=== PATIENT | female | born 1985 | race Caucasian/White ===

== ENCOUNTER 2021-03-18 10:48 | Outpatient (NON) | payer BC, SELFPAY ==
[2021-03-18 11:46] LABS: Collection Time Urine 24 HOURS
[2021-03-18 12:00] LABS: Estimated Glomerular Filt Rate > 60
[2021-03-18 12:38] LABS: Total Volume 24 Hour Urine 1850 ml
[2021-03-18 13:05] LABS: Total Volume 24 Hour Urine 1850 ml
[2021-03-18 13:07] LABS: Creatinine Urine 101.4 mg/dL; Patient Weight 315 Lbs; Total Protein Urine 24 Hr 277 mg/24hr (28-141); Total Protein Urine Random 15 mg/dL
[2021-03-18 13:08] LABS: Creatinine 24 Hour Urine 1.9 gm/24 (0.8-1.8); Creatinine Urine 103.2 mg/dL
[2021-03-18 13:40] LABS: Creatinine Clearance Urine 180.5 ml/min (75-125); Serum Creat 0.5
[2021-05-24 11:16] VITALS: BP 134/70; PULSE 93
[2021-05-24 11:31] VITALS: BP 121/59; PULSE 92
[2021-05-24 11:46] VITALS: BP 125/70; PULSE 92
== END 2021-03-18 10:49 | disposition home or self-care (01) ==
LOC: ANHLAB 10:55
PROVIDERS: PCP Obstetrics & Gynecology Gynecology; Visit Provider Obstetrics & Gynecology
DX: O13.9 Gestational [pregnancy-induced] hypertension without significant proteinuria, unspecified trimester (principal)
CPT/HCPCS: 36415; 81050; 82565; 82570; 82575; 84156

== ENCOUNTER 2021-05-25 12:38 | Observation (INO) | payer OTHER, SELFPAY ==
[2021-05-25] VITALS (50 sets, daily range): BP systolic 107–143; BP diastolic 44–69; PULSE 72–95; TEMP 36.8; O2SAT 97–100; BMI 48.6
--- NOTE | ~2021-05-25 | US_ITS ---
US OB BPP wo non-stress DATE: 05/25/2021 16:14 INDICATION: Nonreactive nonstress test TECHNIQUE: Real-time imaging and Doppler analysis COMPARISON: May 24, 2021 obstetrical ultrasound with biophysical profile FINDINGS: Live jha intrauterine gestation, fetus in vertex presentation, longitudinal lie with heart rate of 151 bpm. Anterior placenta. Subjectively normal amount of adnexal fluid. BIOPHYSICAL PROFILE reported by bicycle repair technician: breathin out of 2 movement: 2 out of 2 tone: 2 out of 2 Amniotic fluid pocket: 2 out of 2 Total score: 8 out of 8 IMPRESSION: Normal biophysical profile score of 8 out of 8 Reviewed, dictated and finalized at Location A. Reviewed, dictated and finalized at location A. ICE PLANNER
--- NOTE | 2021-05-25 13:30 | OBADM ---
This patient, Carola Samuels, admitted to the OB room Labor/Delivery/Recovery 119 for observation for decreased movement and back pain. Patient/family oriented to hospital policies and general routines including ID bracelet, bed and alarms, visiting hours, pain management, procedures, bathroom and other care routines, personal items, smoking policy, room service/diet, and visiting hours. Patient/Family are encouraged to report perceived risks to care and to ask questions if they do not understand what they are told or what they should do.
[2021-05-25 14:47] LABS: Basophils Absolute Auto 0.1 K/mm3 (0.0-0.1); Basophils Percent Auto 0.4 % (0.2-1.2); Eosinophils Absolute Auto 0.1 K/mm3 (0-0.3); Eosinophils Percent Auto 0.4 % (0-4.4); Hematocrit 32.5 % (37.0-47.0); Hemoglobin 10.7 g/dL (12.0-15.0); Immature Granulocyte Absolute 0.22 K/mm3 (0.00-0.031); Immature Granulocyte Percent A 1.5 % (0-0.5); Lymphocytes Absolute Auto 2.23 K/mm3 (0.9-3.2); Lymphocytes Percent Auto 15.7 % (18.3-44.2); Mean Corpuscular HGB Conc 32.9 g/dl (32-36); Mean Corpuscular Hemoglobin 31.4 pg (26-34); Mean Corpuscular Volume 95.3 fl (80-100); Mean Platelet Volume 9.6 fl (7.4-10.4); Monocytes Absolute Auto 1.2 K/mm3 (0.1-0.6); Monocytes Percent Auto 8.2 % (2.6-8.5); Neutrophils Absolute Auto 10.5 K/mm3 (1.3-6.7); Neutrophils Percent Auto 73.8 % (45.5-73.1); Platelet Count Result 341 k/mm3 (150-375); Red Blood Count 3.41 M/mm3 (4.2-5.4); Red Cell Distribution Width 14.4 % (11.5-14.5); White Blood Count 14.2 K/mm3 (4.5-10.0)
[2021-05-25 14:51] LABS: Add Urine Microscopic? NO; Appearance Urine Clear (Clear); Bilirubin Urine Negative (Negative); Blood Urine Negative (Negative); Color Urine Yellow (Yellow); Glucose Urine UA Negative (Negative); Ketones Urine Negative (Negative); Leukocyte Esterase Ur Negative LEU/UL (Negative); Nitrate Urine Negative (Negative); Protein Urine Negative (Negative); Specific Grav Ur 1.011 (1.001-1.035); Urobilinogen Urine Negative mg/dL (<2.0)
[2021-05-25 14:55] LABS: Creatinine Urine 91.1 mg/dL; Total Protein Urine Random 8 mg/dL; Ur Ttl Prot Creatinine Ratio 0.09 mg/mg (0-0.20)
[2021-05-25 15:01] LABS: Alanine Aminotransferase 16 U/L (4-35); Albumin Level 3.5 g/dL (3.5-5.1); Alkaline Phosphatase 123 U/L (38-126); Anion Gap 4 mmol/L (8-16); Aspartate Amino Transferase 32 U/L (14-36); Bilirubin,Total 0.4 mg/dL (0.2-1.3); Blood Urea Nitrogen 4 mg/dL (7-17); Calcium 8.6 mg/dL (8.4-10.2); Carbon Dioxide 18 mmol/L (22-30); Chloride 110 mmol/L (98-107); Estimated Glomerular Filt Rate > 60; Glucose 70 mg/dL (65-110); Potassium 4.2 mmol/L (3.4-5.0); Sodium 132 mmol/L (137-145); Uric Acid 4.5 mg/dL (2.5-7.5)
--- NOTE | 2021-06-19 11:51 | PM.OBTRLD ---
OB - Triage/Final Diagnosis Visit Information Comments/Additional reasons for admission: I have assessed the risk for this patient, Carola Samuels, and determined that she would benefit from observation care. Evaluation Laboratory results: Laboratory Tests 05/25/21 05/25/21 05/25/21 14:22 14:22 14:22 WBC 14.2 H RBC 3.41 L Hgb 10.7 L Hct 32.5 L MCV 95.3 MCH 31.4 MCHC 32.9 RDW 14.4 Plt Count 341 MPV 9.6 Immature Gran % (Auto) 1.5 H Neut % (Auto) 73.8 H Lymph % (Auto) 15.7 L [place] % (Auto) 8.2 Eos % (Auto) 0.4 Baso % (Auto) 0.4 Lymph # (Auto) 2.23 [place] # (Auto) 1.2 H Eos # (Auto) 0.1 Baso # (Auto) 0.1 Abs Immat Gran (auto) 0.22 H Absolute Neuts (auto) 10.5 H Absolute Nucleated RBC 0.0 Nucleated RBC % 0.0 Sodium 132 L Potassium 4.2 Chloride 110 H Carbon Dioxide 18 L Anion Gap 4 L BUN 4 L Creatinine 0.40 L Estim Creat Clear Calc Not Reportable Estimated GFR > 60 Glucose 70 Uric Acid 4.5 Calcium 8.6 Total Bilirubin 0.4 AST 32 ALT 16 Alkaline Phosphatase 123 Total Protein 7.0 Albumin 3.5 Urine Color Urine Appearance Urine pH Ur Specific [place] Urine Protein Urine Glucose (UA) Urine Ketones Ur Blood (Man) Urine Nitrate Urine Bilirubin Urine Urobilinogen Leukocyte Esterase Rfl U Random Total Protein 8 Urine Creatinine 91.1 Protein/Creat Ratio 2 0.09 05/25/21 14:22 WBC RBC Hgb Hct MCV MCH MCHC RDW Plt Count MPV Immature Gran % (Auto) Neut % (Auto) Lymph % (Auto) [place] % (Auto) Eos % (Auto) Baso % (Auto) Lymph # (Auto) [place] # (Auto) Eos # (Auto) Baso # (Auto) Abs Immat Gran (auto) Absolute Neuts (auto) Absolute Nucleated RBC Nucleated RBC % Sodium Potassium Chloride Carbon Dioxide Anion Gap BUN Creatinine Estim Creat Clear Calc Estimated GFR Glucose Uric Acid Calcium Total Bilirubin AST ALT Alkaline Phosphatase Total Protein Albumin Urine Color Yellow Urine Appearance Clear Urine pH 7.0 Ur Specific [place] 1.011 Urine Protein Negative Urine Glucose (UA) Negative Urine Ketones Negative Ur Blood (Man) Negative Urine Nitrate Negative Urine Bilirubin Negative Urine Urobilinogen Negative Leukocyte Esterase Rfl Negative U Random Total Protein Urine Creatinine Protein/Creat Ratio 2 Final Diagnosis (1) Chronic hypertension affecting : Code(s): O10.919 - Unspecified pre-existing hypertension complicating , unspecified trimester Status: Acute
== END 2021-05-25 18:01 | disposition home or self-care (01) ==
LOC: ANHLDR 13:50 → ANHOBOP 15:55 → ANHLDR 15:56
PROVIDERS: Admitting Provider Obstetrics & Gynecology; Visit Provider Obstetrics & Gynecology
DX: O10.913 Unspecified pre-existing hypertension complicating pregnancy, third trimester (principal); Z3A.33 33 weeks gestation of pregnancy
CPT/HCPCS: 36415; 76819; 80053; 81003; 82570; 84156; 84550; 85025; G0378; G0379

== ENCOUNTER 2021-06-09 13:07 | Observation (INO) | payer OTHER, SELFPAY ==
[2021-06-09 13:42] VITALS: BP 149/81; PULSE 101
[2021-06-09 14:01] VITALS: BP 134/84; PULSE 87
--- NOTE | 2021-07-03 08:46 | PM.OBTRLD ---
OB - Triage/Final Diagnosis Visit Information Comments/Additional reasons for admission: I have assessed the risk for this patient, Carola Samuels, and determined that she would benefit from observation care. Final Diagnosis (1) Dizzy: Code(s): R42 - Dizziness and giddiness Status: Acute
== END 2021-06-09 14:18 | disposition home or self-care (01) ==
PROVIDERS: Admitting Provider Obstetrics & Gynecology; Visit Provider Obstetrics & Gynecology
DX: O26.893 Other specified pregnancy related conditions, third trimester (principal); R42 Dizziness and giddiness; Z3A.35 35 weeks gestation of pregnancy
CPT/HCPCS: G0378; G0379

== ENCOUNTER 2021-06-14 13:23 | Outpatient (RCR) | payer OTHER, SELFPAY ==
[2021-05-16 12:41] VITALS: BP 125/55; PULSE 92
[2021-05-24 12:40] VITALS: BP 125/70; PULSE 95
[2021-05-31 14:05] VITALS: BP 109/52; PULSE 100
[2021-06-07 10:38] VITALS: BP 126/56; PULSE 104
--- NOTE | ~2021-06-14 | US_ITS ---
EXAMINATION: US OB BPP wo non-stress DATE: 05/16/2021 12:37 INDICATION: Nonreactive nonstress test during third trimester TECHNIQUE: Real-time pelvic ultrasound was performed. The interpreting radiologist was not present fo r the study. COMPARISON: None. FINDINGS: There is a single living fetus in vertex presentation. The placenta is anterior. heart rate is 138 beats per minute (bpm). Biophysical profile performed by the technologist: breathing (30 sec sustained breathing in 30 minutes): 2 out of 2 movement (3 gross body movements in 30 minutes): 2 out of 2 tone (one episode of qhqbvcv-yyswffitu-kzkkiwa limb movement): 2 out of 2 Amniotic fluid pocket (2 cm): 2 out of 2 Total score: 8 out of 8 IMPRESSION: 1. Single living fetus in vertex presentation with heart rate of 138 bpm. 2. Biophysical profile 8 out of 8. Reviewed, dictated and finalized at location A. TAL PHOTO PRINTER
--- NOTE | ~2021-06-14 | US_ITS ---
US OB BPP wo non-stress DATE: 05/24/2021 12:29 INDICATION: Nonreactive nonstress test TECHNIQUE: Real-time imaging and Doppler analysis COMPARISON: None FINDINGS: Live jha intrauterine gestation, fetus in vertex presentation, longitudinal lie with heart rate of 135 bpm. Anterior placenta. No evidence of placenta previa. Subjectively normal amount of adnexal fluid with a pocket measuring up to 6.5 cm depth. BIOPHYSICAL PROFILE reported by desktop support technician: breathin out of 2 movement: 2 out of 2 tone: 2 out of 2 Amniotic fluid pocket: 2 out of 2 Total score: 8 out of 8 IMPRESSION: Normal biophysical profile score of 8 out of 8 Reviewed, dictated and finalized at Location A. Reviewed, dictated and finalized at location A. ROL VALVE MECHANIC
--- NOTE | ~2021-06-14 | US_ITS ---
EXAMINATION: US OB BPP wo non-stress DATE: 05/31/2021 14:07 INDICATION: Nonreactive nonstress test, third trimester TECHNIQUE: Real-time pelvic ultrasound was performed. The interpreting radiologist was not present fo r the study. COMPARISON: 05/25/2021 FINDINGS: There is a single living fetus in transverse lie. The placenta is anterior. heart rate is 157 b eats per minute (bpm). Biophysical profile performed by the technologist: breathing (30 sec sustained breathing in 30 minutes): 2 out of 2 movement (3 gross body movements in 30 minutes): 2 out of 2 tone (one episode of csqeexv-xyegrickm-hcccqvy limb movement): 2 out of 2 Amniotic fluid pocket (2 cm): 2 out of 2 Total score: 8 out of 8 IMPRESSION: 1. Single living fetus in transverse lie. 2. Biophysical profile 8 out of 8. Reviewed, dictated and finalized at location A. E BANDER
--- NOTE | ~2021-06-14 | US_ITS ---
EXAMINATION: US OB BPP wo non-stress DATE: 06/07/2021 10:33 DRY WALL INSTALLATIONS MECHANIC INDICATION: Chronic hypertension TECHNIQUE: Real-time transabdominal obstetric ultrasound. FINDINGS: 05/31/2021 There is a single living fetus in transverse presentation. The placenta is anterior without placenta previa. cardiac activity and movement is noted with a heart rate of 142 beats per minute. Biophysical profile: breathin of 2 movement: 2 of 2 tone: 2 of 2 Amniotic flud pocket: 2 of 2 Total score: 8 of 8 IMPRESSION: 1. Single living intrauterine in transverse presentation. 2: Total biophysical profile score of 8/8. Reviewed, dictated and finalized at location B. WALL INSTALLATIONS MECHANIC
--- NOTE | ~2021-06-14 | US_ITS ---
US OB BPP wo non-stress DATE: 06/14/2021 14:56 INDICATION: Hypertension TECHNIQUE: Real-time imaging and Doppler analysis COMPARISON: June 07, 2021 obstetrical ultrasound with biophysical profile FINDINGS: Live jha intrauterine gestation, fetus in longitudinal lie, vertex presentation with heart rate of 142 bpm. Anterior placenta. Subjectively normal amount of amniotic fluid. BIOPHYSICAL PROFILE reported by downstream biomanufacturing technician: breathin out of 2 movement: 2 out of 2 tone: 2 out of 2 Amniotic fluid pocket: 2 out of 2 Total score: 8 out of 8 IMPRESSION: Normal biophysical profile score of 8 out of 8 Reviewed, dictated and finalized at Location A. Reviewed, dictated and finalized at location A. OLOGY TECHNICIAN
[2021-06-14 14:37] LABS: Basophils Percent Auto 0.3 % (0.2-1.2); Eosinophils Absolute Auto 0.1 K/mm3 (0-0.3); Eosinophils Percent Auto 0.4 % (0-4.4); Hematocrit 31.8 % (37.0-47.0); Hemoglobin 10.3 g/dL (12.0-15.0); Immature Granulocyte Absolute 0.16 K/mm3 (0.00-0.031); Immature Granulocyte Percent A 1.2 % (0-0.5); Lymphocytes Absolute Auto 2.05 K/mm3 (0.9-3.2); Lymphocytes Percent Auto 15.2 % (18.3-44.2); Mean Corpuscular HGB Conc 32.4 g/dl (32-36); Mean Corpuscular Hemoglobin 31.3 pg (26-34); Mean Corpuscular Volume 96.7 fl (80-100); Mean Platelet Volume 9.5 fl (7.4-10.4); Monocytes Absolute Auto 1.1 K/mm3 (0.1-0.6); Monocytes Percent Auto 8.3 % (2.6-8.5); Neutrophils Absolute Auto 10.1 K/mm3 (1.3-6.7); Neutrophils Percent Auto 74.6 % (45.5-73.1); Platelet Count Result 314 k/mm3 (150-375); Red Blood Count 3.29 M/mm3 (4.2-5.4); Red Cell Distribution Width 14.7 % (11.5-14.5); White Blood Count 13.5 K/mm3 (4.5-10.0)
[2021-06-14 14:54] LABS: Alanine Aminotransferase 14 U/L (4-35); Albumin Level 3.2 g/dL (3.5-5.1); Alkaline Phosphatase 133 U/L (38-126); Anion Gap 8 mmol/L (8-16); Aspartate Amino Transferase 26 U/L (14-36); Bilirubin,Total < 0.1 mg/dL (0.2-1.3); Blood Urea Nitrogen 7 mg/dL (7-17); Calcium 8.5 mg/dL (8.4-10.2); Carbon Dioxide 18 mmol/L (22-30); Chloride 110 mmol/L (98-107); Estimated Glomerular Filt Rate > 60; Glucose 94 mg/dL (65-110); Sodium 136 mmol/L (137-145); Uric Acid 4.9 mg/dL (2.5-7.5)
[2021-06-14 15:05] VITALS: BP 136/71; PULSE 84
== END 2021-06-27 10:47 | disposition home or self-care (01) ==
LOC: ANHOBOP 13:23
PROVIDERS: Visit Provider Obstetrics & Gynecology
DX: O26.893 Other specified pregnancy related conditions, third trimester (principal); R03.0 Elevated blood-pressure reading, without diagnosis of hypertension; O99.213 Obesity complicating pregnancy, third trimester; Z3A.32 32 weeks gestation of pregnancy; Z3A.33 33 weeks gestation of pregnancy; O16.3 Unspecified maternal hypertension, third trimester; O36.8130 Decreased fetal movements, third trimester, not applicable or unspecified; Z3A.34 34 weeks gestation of pregnancy; Z3A.35 35 weeks gestation of pregnancy; Z3A.36 36 weeks gestation of pregnancy
CPT/HCPCS: 36415; 59025; 76819; 80053; 84550; 85025; J2405

== ENCOUNTER 2021-06-19 17:08 | Inpatient (IN) | payer OTHER, SELFPAY ==
[2021-06-19] VITALS (11 sets, daily range): BP systolic 87–165; BP diastolic 44–103; PULSE 75–97; BMI 53.6
[2021-06-19 17:53] LABS: Basophils Absolute Auto 0.1 K/mm3 (0.0-0.1); Basophils Percent Auto 0.4 % (0.2-1.2); Eosinophils Absolute Auto 0.1 K/mm3 (0-0.3); Eosinophils Percent Auto 0.4 % (0-4.4); Hematocrit 32.2 % (37.0-47.0); Hemoglobin 10.8 g/dL (12.0-15.0); Immature Granulocyte Absolute 0.21 K/mm3 (0.00-0.031); Immature Granulocyte Percent A 1.5 % (0-0.5); Lymphocytes Absolute Auto 2.32 K/mm3 (0.9-3.2); Mean Corpuscular HGB Conc 33.5 g/dl (32-36); Mean Corpuscular Hemoglobin 31.5 pg (26-34); Mean Corpuscular Volume 93.9 fl (80-100); Mean Platelet Volume 9.4 fl (7.4-10.4); Monocytes Absolute Auto 1.3 K/mm3 (0.1-0.6); Monocytes Percent Auto 9.5 % (2.6-8.5); Neutrophils Absolute Auto 9.7 K/mm3 (1.3-6.7); Neutrophils Percent Auto 71.2 % (45.5-73.1); Platelet Count Result 348 k/mm3 (150-375); Red Blood Count 3.43 M/mm3 (4.2-5.4); Red Cell Distribution Width 14.6 % (11.5-14.5); White Blood Count 13.6 K/mm3 (4.5-10.0)
[2021-06-19] MEDS: DINOPROSTONE 10 MG VAG INSERT VAGINAL (18:02)
[2021-06-19 18:04] LABS: Alanine Aminotransferase 16 U/L (4-35); Albumin Level 3.3 g/dL (3.5-5.1); Alkaline Phosphatase 152 U/L (38-126); Anion Gap 5 mmol/L (8-16); Aspartate Amino Transferase 28 U/L (14-36); Bilirubin,Total 0.2 mg/dL (0.2-1.3); Blood Urea Nitrogen 7 mg/dL (7-17); Calcium 8.8 mg/dL (8.4-10.2); Carbon Dioxide 20 mmol/L (22-30); Chloride 108 mmol/L (98-107); Estimated Glomerular Filt Rate > 60; Glucose 82 mg/dL (65-110); Potassium 3.9 mmol/L (3.4-5.0); Sodium 133 mmol/L (137-145); Uric Acid 5.4 mg/dL (2.5-7.5)
--- NOTE | 2021-06-19 19:03 | WPDANESEPP ---
Anes - Eval Pre Procedure Procedure: Labor epidural Date/Time: 06/19/21 19:03 Surgeon: Tucker Preop Diagnosis: Abd pain with contractions Pre Op Diagnosis: Induction of Labor Patient Data Age: 35 Gender: F Height: Weight: Last Vital Signs Pulse 76 06/19/21 19:01 BP 87/59 L 06/19/21 19:01 Allergies Allergy/AdvReac Type Severity Reaction Status Date / Time No Known Allergies Allergy Verified 06/19/21 18:48 Home Medications Medication Instructions Recorded Confirmed Type fluoxetine 20 mg PO DAILY 05/25/21 06/19/21 History labetalol 300 mg PO BID 05/25/21 06/19/21 History metformin 500 mg PO BID 05/25/21 06/19/21 History nifedipine 30 mg PO DAILY 05/25/21 06/19/21 History PNV cmb#95-ferrous fumarate-FA 1 tablet PO DAILY 05/31/21 06/19/21 History [] cgmwzkghdx-xynaurempxspj-gmid 1 - 2 cap PO Q6H PRN #30 cap 06/14/21 06/19/21 Rx [Fioricet] Laboratory Tests 06/19/21 06/19/21 06/19/21 17:46 17:46 17:46 WBC 13.6 K/mm3 H K/mm3 (4.5-10.0) RBC 3.43 M/mm3 L M/mm3 (4.2-5.4) Hgb 10.8 g/dL L g/dL (12.0-15.0) Hct 32.2 % L % (37.0-47.0) MCV 93.9 fl fl (80-100) MCH 31.5 pg pg (26-34) MCHC 33.5 g/dl g/dl (32-36) RDW 14.6 % H % (11.5-14.5) Plt Count 348 k/mm3 k/mm3 (150-375) MPV 9.4 fl fl (7.4-10.4) Immature Gran % (Auto) 1.5 % H % (0-0.5) Neut % (Auto) 71.2 % % (45.5-73.1) Lymph % (Auto) 17.0 % L % (18.3-44.2) [place] % (Auto) 9.5 % H % (2.6-8.5) Eos % (Auto) 0.4 % % (0-4.4) Baso % (Auto) 0.4 % % (0.2-1.2) Lymph # (Auto) 2.32 K/mm3 K/mm3 (0.9-3.2) [place] # (Auto) 1.3 K/mm3 H K/mm3 (0.1-0.6) Eos # (Auto) 0.1 K/mm3 K/mm3 (0-0.3) Baso # (Auto) 0.1 K/mm3 K/mm3 (0.0-0.1) Abs Immat Gran (auto) 0.21 K/mm3 H K/mm3 (0.00-0.031) Absolute Neuts (auto) 9.7 K/mm3 H K/mm3 (1.3-6.7) Absolute Nucleated RBC 0.0 K/mm3 K/mm3 (0.0-0.012) Nucleated RBC % 0.0 % % (0.0-0.2) Sodium 133 mmol/L L mmol/L (137-145) Potassium 3.9 mmol/L mmol/L (3.4-5.0) Chloride 108 mmol/L H mmol/L (98-107) Carbon Dioxide 20 mmol/L L mmol/L (22-30) Anion Gap 5 mmol/L L mmol/L (8-16) BUN 7 mg/dL mg/dL (7-17) Creatinine 0.50 mg/dL L mg/dL (0.7-1.0) Estim Creat Clear Calc Not Reportable Estimated GFR > 60 (59 - ) Glucose 82 mg/dL mg/dL (65-110) Uric Acid 5.4 mg/dL mg/dL (2.5-7.5) Calcium 8.8 mg/dL mg/dL (8.4-10.2) Total Bilirubin 0.2 mg/dL mg/dL (0.2-1.3) AST 28 U/L U/L (14-36) ALT 16 U/L U/L (4-35) Alkaline Phosphatase 152 U/L H U/L (38-126) Total Protein 6.0 g/dL L g/dL (6.3-8.2) Albumin 3.3 g/dL L g/dL (3.5-5.1) RPR Pending Patient hx anesthesia problems: none Family hx anesthesia problems: none Results Review: All pre-operative results and documents have been reviewed as part of the pre-operative evaluation. [facility] [place] Past Medical History Medical History Anxiety Gestational HTN Migraines Morbid obesity PCOS (polycystic ovarian syndrome) and not yet delivered Family History Family History Grandparent Heart disease Cerebrovascular accident Mother Hypertension Father Hypertension Sibling Sudden syndrome (SIDS) Sibling Overdose Grandparent Colon cancer Grandparent Malignant brain tumor Social History Social History Substance use: never Spiritual care concerns: No Exam Day of Procedure 06/19/21 19:03 Patient weight: super
[2021-06-20] VITALS (211 sets, daily range): BP systolic 98–167; BP diastolic 38–114; PULSE 60–138; TEMP 36.7–37; O2SAT 92–100
[2021-06-20] MEDS: OXYTOCIN 30 UNITS/NS 500 ML 30 UNITS/500 ML BAG 6 UNITS IV CONT (06:50)
[2021-06-20] MEDS: LACTATED RINGERS 1,000 ML 125 ML IV CONT ×2 (06:50→21:01)
[2021-06-20] MEDS: LABETALOL HCL 100 MG TABLET 300 MG PO ×2 (07:45→21:00)
--- NOTE | 2021-06-20 08:45 | PM.IMHP ---
H&P: HPI History of Present Illness Date/Time: 06/20/21 0845 35 y/o at 37 2/7 weeks gestation with chronic HTN, worsening bp control. She takes labetalol 300 mb po bid and Procardia XL 30 mg daily. She has had an increase in headaches recently. She takes metformin for PCOS, but had negative testing for gestational diabetes. GBS neg. She is here for induction of labor. Cervidil was placed overnight last night, has been withdrawn. Chief Complaint: High blood pressure Review of Systems Review of Systems: All systems reviewed & are unremarkable except as noted in HPI and below PMFSH Past Medical History Medical History Anxiety Gestational HTN Migraines Morbid obesity PCOS (polycystic ovarian syndrome) and not yet delivered Family History Family History Grandparent Heart disease Cerebrovascular accident Mother Hypertension Father Hypertension Sibling Sudden infant syndrome (SIDS) Sibling Overdose Grandparent Colon cancer Grandparent Malignant brain tumor Social History Social History Substance use: never Spiritual care concerns: No Meds Home Medications and Allergies Home Medications Medication Instructions Recorded Confirmed Type fluoxetine 20 mg PO DAILY 05/25/21 06/19/21 History labetalol 300 mg PO BID 05/25/21 06/19/21 History metformin 500 mg PO BID 05/25/21 06/19/21 History nifedipine 30 mg PO DAILY 05/25/21 06/19/21 History PNV cmb#95-ferrous fumarate-FA 1 tablet PO DAILY 05/31/21 06/19/21 History [] ddqqfadtui-lrgbziyzkmyik-zsnw 1 - 2 cap PO Q6H PRN #30 cap 06/14/21 06/19/21 Rx [Fioricet] Allergies Allergy/AdvReac Type Severity Reaction Status Date / Time No Known Allergies Allergy Verified 06/19/21 18:48 Vital Signs Vital Signs - 24 hr 06/19/21 23:52 06/20/21 03:59 06/20/21 06:51 Temperature 37.0 C Pulse Rate 83 79 103 H Blood Pressure 126/53 L 124/44 L 149/71 H Pulse Oximetry 06/20/21 07:01 06/20/21 07:16 06/20/21 07:30 Temperature 37.0 C Pulse Rate 103 H 100 Blood Pressure 145/74 H 121/54 L Pulse Oximetry 06/20/21 07:31 06/20/21 07:45 06/20/21 08:01 Temperature Pulse Rate 103 H 70 94 Blood Pressure 134/114 H 118/53 L Pulse Oximetry 06/20/21 08:16 06/20/21 08:46 06/20/21 09:16 Temperature Pulse Rate 85 82 81 Blood Pressure 123/46 L 118/58 L 164/83 H Pulse Oximetry 06/20/21 09:30 06/20/21 09:31 06/20/21 09:46 Temperature 37.0 C Pulse Rate 78 77 Blood Pressure 159/83 H 132/57 L Pulse Oximetry 06/20/21 10:01 06/20/21 10:16 06/20/21 10:46 Temperature Pulse Rate 74 86 85 Blood Pressure 127/57 L 133/49 L 138/90 Pulse Oximetry 06/20/21 11:01 06/20/21 11:16 06/20/21 11:30 Temperature 36.7 C Pulse Rate 89 88 Blood Pressure 127/60 135/57 L Pulse Oximetry 06/20/21 11:31 06/20/21 11:46 06/20/21 12:01 Temperature Pulse Rate 82 86 85 Blood Pressure 138/51 L 126/61 122/75 Pulse Oximetry 06/20/21 12:16 06/20/21 12:32 06/20/21 12:39 Temperature Pulse Rate 76 74 Blood Pressure 158/66 H 119/67 Pulse Oximetry 100 06/20/21 12:44 06/20/21 12:48 06/20/21 12:49 Temperature Pulse Rate 83 Blood Pressure 140/69 Pulse Oximetry 100 100 06/20/21 12:51 06/20/21 12:52 06/20/21 12:54 Temperature Pulse Rate 87 77 92 Blood Pressure 149/101 H 125/100 H 151/87 H Pulse Oximetry 100 06/20/21 12:56 06/20/21 12:58 06/20/21 12:59 Temperature Pulse Rate 88 89 Blood Pressure 167/75 H 154/87 H Pulse Oximetry 100 06/20/21 13:01 06/20/21 13:03 03/08/22 13:04 Temperature Pulse Rate 75 90 Blood Pressure 141/76 H 130/95 H Pulse Oximetry 100 06/20/21 13:06 06/20/21 13:09 06/20/21 13:11 Temperature Pulse Rate 87 81 84 Blood P
[2021-06-20 10:39] LABS: Rapid Plasma Reagin Non-Reactive (NonReactive)
--- NOTE | 2021-06-20 12:45 | PM.OBPNLAB ---
Pain Control Date/time seen: 06/20/21 1245 Feeling more pain. Epidural is being placed currently. AVSS NST reactive TOCO: contractions every 2-4 min Cervix 350/-2 per RN Continue labor
--- NOTE | 2021-06-20 17:45 | PM.OBPNLAB ---
Pain Control Date/time seen: 06/20/21 1745 Comfortable AVSS NST reactive TOCO: contractions every 2-4 min Cervix /-2. Continue labor.
[2021-06-20] MEDS: ACETAMINOPHEN/BUTALBITAL/CAFFEINE 325-50-40 MG TABLET (FIORICET) 2 TAB PO (19:52)
[2021-06-20] MEDS: metFORMIN HCL 500 MG TABLET PO (21:00)
[2021-06-20] MEDS: FLUoxetine HCL 20 MG CAPSULE PO (21:01)
[2021-06-21] VITALS (213 sets, daily range): BP systolic 67–167; BP diastolic 23–127; PULSE 66–136; RESP 16–20; TEMP 36.6–37.8; O2SAT 96–100
[2021-06-21] MEDS: ONDANSETRON INJ 4 MG/2 ML VIAL IV PUSH ×2 (00:34→09:11)
[2021-06-21] MEDS: ACETAMINOPHEN/BUTALBITAL/CAFFEINE 325-50-40 MG TABLET (FIORICET) PO ×2 (01:31→09:14)
[2021-06-21] MEDS: LACTATED RINGERS 1,000 ML 125 ML IV CONT ×3 (04:05→15:31)
[2021-06-21] MEDS: AMPICILLIN 2 GM/NS 100 ML 2 GM/100 ML BAG IVPB (06:18)
[2021-06-21] MEDS: OXYTOCIN 30 UNITS/NS 500 ML 30 UNITS/500 ML BAG IV CONT (06:19)
--- NOTE | 2021-06-21 06:45 | LDADM ---
This patient, Carola Samuels, was admitted to Labor/Delivery/Recovery 105 on 06/19/21 at 17:08. Plans for labor, pain management and were discussed with patient. Patient/family oriented to hospital policies and general routines including ID bracelet, bed and alarms, visiting hours, pain management, procedures, bathroom and other care routines, personal items, smoking policy, room service/diet and guest tray routines, security routines, and visiting hours. Patient/Family are encouraged to report perceived risks to care and to ask questions if they do not understand what they are told or what they should do. See OBIX for further documentation.
--- NOTE | 2021-06-21 08:45 | PM.OBPNLAB ---
Pain Control Date/time seen: 06/21/21 9937 Comments: Comfortable. AVSS NST reactive TOCO: contractions every 2-4 min Cervix 4-5/80/-2 Continue labor.
--- NOTE | 2021-06-21 08:45 | P.PNOB_ITS ---
Pain Control Date/time seen: 06/21/21 1937 Comments: Comfortable. AVSS NST reactive TOCO: contractions every 2-4 min Cervix 4-5/80/-2 Continue labor.
[2021-06-21] MEDS: metFORMIN HCL 500 MG TABLET PO ×2 (09:13→20:58)
[2021-06-21] MEDS: LABETALOL HCL 100 MG TABLET 300 MG PO ×2 (09:13→20:57)
[2021-06-21] MEDS: CALCIUM CARBONATE (TUMS) 500 MG (200 MG ELEMENTAL) PO (09:16)
[2021-06-21] MEDS: AMPICILLIN 1 GM/NS 50 ML 1 GM/50 ML BAG IVPB ×2 (10:04→14:03)
--- NOTE | 2021-06-21 13:30 | PM.OBPNLAB ---
Pain Control Date/time seen: 06/21/21 1330 Feeling a little uncomfortable. AVSS Cervix unchanged Anesthesia will reevaluate epidural.
--- NOTE | 2021-06-21 14:36 | PM.OBPNLAB ---
Pain Control Date/time seen: 06/21/21 14:36 Pain well-controlled. AVSS NST reactive TOCO: contractions every 2-4 min Cervix 4-5/50/-2. A: Arrest of dilation in labor. P: Offered primary . Reviewed risks, benefits and alternatives in detail. She understands risks of surgery to include risks of anesthesia, risks of pain, infection, bleeding, blood products, thromboembolic phenomena and damage to adjacent structures such as bowel, bladder, ureters, blood vessels and nerves. She understands all these risks and elects to proceed with .
--- NOTE | 2021-06-21 15:01 | WPDANESEFPP ---
Anes - Eval Final PreProcedure Day of Procedure 06/21/21 15:01 Patient weight: super morbidly obese Heart: regular rate and rhythm Lungs: clear to auscultation and normal air movement Airway: Mallampati scale class II Neurological: alert and oriented Last oral intake: >/= 8 hours ASA classification: III Emergent: no Anesthetic plan: proceed Anesthesia type and monitoring: regional epidural and standard monitoring Results Review: All pre-operative results and documents have been reviewed as part of the pre-operative evaluation. Informed Consent: The patient's anesthetic plan and its attendant risks and benefits were discussed with the patient/family/POA. Questions were solicited and answers provided to the satisfaction of the patient/family/POA.
[2021-06-21] MEDS: ceFAZolin 3 GM/D5W 100 ML 100 ML IVPB (16:08)
--- NOTE | 2021-06-21 17:24 | P.PCNOB_ITS ---
OB - Delivery Note Procedure Delivery date: 06/21/21 Procedure: Procedures Operation Date: 06/21/21 15:30 <No data on this case meets the specified criteria> Primary low transverse delivery Events: Chronic Hypertension Intrapartal Events: Arrest of Dilation Induction method: Per Cervidil Protocol Delivery augmentation: Rupture of Membranes and Pitocin Delivery monitor: External FHT, External Uterine, Internal FHT and Internal Uterine Route of delivery: Prior to decision for section, ACOG/SMFM labor guidelines were considered and discussed with the patient and staff. Decision made to proceed with the section.: Yes Quantitative Blood Loss (ml): 1,100 Anesthesia type: Epidural Disposition: PACU Complications: None Narrative: The patient was taken to the operating room where she was prepared and draped in the usual sterile fashion in dorsal supine position with a leftward tilt. She received cefazolin preoperatively. Spinal anesthesia was found to be adequate. A Pfannenstiel skin incision was made and carried through to the underlying layer of the fascia. The fascia was incised in the midline and the incision was extended laterally. The fascia was dissected free of the underlying rectus muscles. The rectus muscles were in the midline. The peritoneum was identified, tented up and entered sharply. The peritoneal incision was extended superiorly and inferiorly with good visualization of the bladder. The bladder blade was placed. The vesicouterine peritoneum was identified, tented up and entered sharply. The incision was extended laterally and the bladder flap was developed. The bladder blade was replaced. The uterus was then incised sharply in a transverse fashion along the lower uterine segment. The incision was extended laterally. The infant's head was delivered atraumatically to the sterile field, followed by the body. The nose and mouth were bulb suctioned. After a delay, the cord was clamped and cut. The infant was handed off the field. Cord blood was collected. The placenta was removed manually and was passed off the field. The uterus was exteriorized and cleared of all clots and debris. The uterine incision was reapproximated using 0 Monocryl in a running, locked fashion. A second, imbricating layer of the same suture was placed. Excellent hemostasis resulted as did excellent reapproximation of the normal anatomy. The uterus was returned the abdomen. The pelvis was irrigated copiously with warmed normal saline. Hemaderm was applied to the bladder flap. Rigorous hemostasis was assured. The fascial layer was reapproximated using 0 Vicryl in a running fashion. The skin was monika sed with a running, subcuticular stitch of 4 0 Vicryl. Dermaflex was applied externally. Sponge, lap, needle and instrument counts were correct. The patient was taken to the recovery room in stable condition. The infant went to the nursery in stable condition. I was present and scrubbed the entire procedure. Baby Date of : 06/21/21 Time of : 16:26 Weeks of gestation at delivery: 37 gender: Female Weight (pounds): 8 Weight (ounces): 9 presentation: vertex Placenta delivery description: Manual Removal and Normal Configuration Cord Vessel Description: 3 Vessels and Delayed Cord Clamping score one minute: 8 score five minutes: 9
--- NOTE | 2021-06-21 17:28 | PM.OBDSVD ---
DS: Admitting Diagnosis Discharge Date 06/24/21 Admitting Diagnosis IUP at 37 weeks Chronic HTN Headache DS: Discharge Diagnosis Discharge Diagnosis (1) Chronic hypertension affecting : Code(s): O10.919 - Unspecified pre-existing hypertension complicating , unspecified trimester Status: Acute (2) Headache: Code(s): R51.9 - Headache, unspecified Status: Acute OB - DS: Summary OB Procedures : PIH Mgmt OB Procedures Intrapartum: OB Procedures: : None Peripartum Data Procedures: Procedures Operation Date: 06/21/21 15:30 <No data on this case meets the specified criteria> Primary low transverse delivery Discharge Plan Discharge Attending physician on discharge: Bubba Ceballos Consulting providers: Tucker Liriano Discharging Clinician: Bubba Ceballos Patient Disposition: Home, Self-Care Activity: may shower, may drive after 2 weeks and pelvic rest Diet: regular Wound Care Instructions: incision open to air Discharge Instructions: Education: Mom and Baby Guide Given to: Mother Follow-Up: Call your delivering provider's office for an appointment to be seen in: 4 Weeks Mom and baby should come to the [facility] for the follow-up appointment. Appointment Date/Time: June 19, 2021 at 8:00 am What to expect at your follow-up visit: Blood Pressure Check Physical Assessment Call [phone] if you are unable to keep your appointment time. BREAST CARE: * Wear a snug supportive bra. * For engorgement discomfort: Bottle Feeding: * May apply ice packs ABDOMINAL INCISION: (if applicable) * Allow incision to air dry * Do NOT use lotions for powders on your incision * When showering, allow soap and water to run over the incision, but do not wash incision EPISIOTOMY/PERINEAL CARE: * Until bleeding stops, use your ramandeep bottle after urinating * Change your pad frequently throughout the day * No tub baths until seen by your physician - You may shower ACTIVITY: * Rest as much as possible. * Do not exercise or lift anything heavier than your baby (such as laundry or other children.) * Avoid stairs or driving as much as possible. * Do not put anything into the vagina. No douching, tampons, or sexual activity until seen by physician. NOTIFY PHYSICIAN IF YOU HAVE ANY QUESTIONS OR IF ANY OF THE FOLLOWING SYMPTOMS OCCUR: * If your incision becomes red, swollen, or more painful than what you have experienced in the hospital. * If your vaginal bleeding becomes foul smelling. * If your vaginal bleeding becomes more heavy than a period or if your bleeding changes from pink to bright red. However, you may pass an occasional walnut-sized clot once or twice for the first week . * If you experience a sharp, shooting pain in your calves. * If you discover a hard, reddened area on your breast or if you experience flu-like symptoms. DIET: * Eat regular, well-balanced meals. * Drink plenty of fluids daily. Call or return if temperature above 100.4? F, increased abdominal pain, increased vaginal bleeding or any new problems. Stand Alone Forms: General Discharge Information Follow-up/Referrals: Bubba Ceballos MD [Physician] - 4 Weeks Discharge Medications: New ibuprofen 600 mg tablet 600 mg PO Q6H PRN (Reason: cramps) Qty: 30 RF: 0 ferrous sulfate 325 mg (65 mg iron) tablet 325 mg PO DAILY Qty: 30 RF: 0 hydrocodone-acetaminophen 5-325 mg tablet 1 tablet PO Q6H PRN (Reason: pain) Qty: 30 RF: 0 Continued PNV cmb#95-ferrous fumarate-FA [] 28 mg iron- 800 mcg Tablet 1 tablet PO DAILY RF: 0 oswlinxjkt-khbrbrwwjgagy-ppoc [Fioricet] 50-300-40 mg capsule 1 - 2 cap PO Q6H PRN (Reason: pain) Qty: 30 RF: 0 fluoxetine 20 mg capsule 20 mg PO HS RF: 0 Discontinued nifedipine 30 mg tablet extended releas
[2021-06-21] MEDS: MORPHINE SULFATE INJ (*CRX) 10 MG/ML AMP 2 MG IV PUSH (17:46)
[2021-06-21] MEDS: OXYTOCIN 30 UNITS/NS 500 ML 30 UNITS/500 ML BAG 125 UNITS IV CONT (17:52)
--- NOTE | 2021-06-21 18:01 | SUR.PHASEI ---
Report given to Susie Soriano RN, taking over for recovery care.
--- NOTE | 2021-06-21 20:02 | OBPPTRN ---
Patient transferred to post room # 282 via bed. Support person present. Oriented to unit, room, information board, rooming in, admission packet and security measures. Patient verbalizes understanding.
[2021-06-21] MEDS: FLUoxetine HCL 20 MG CAPSULE PO (20:56)
[2021-06-21] MEDS: HYDROcodone/acetaminophen (*CRX) 5-325 MG TABLET 1 TAB PO (21:22)
[2021-06-22] MEDS: HYDROcodone/acetaminophen (*CRX) 5-325 MG TABLET 1 TAB PO ×3 (01:35→09:13)
[2021-06-22] MEDS: IBUPROFEN 600 MG TABLET PO ×3 (03:42→18:10)
[2021-06-22 03:45] VITALS: BP 142/78; PULSE 102; RESP 18; TEMP 36.9; O2SAT 97
[2021-06-22 04:28] LABS: Basophils Absolute Auto 0.1 K/mm3 (0.0-0.1); Basophils Percent Auto 0.2 % (0.2-1.2); Hematocrit 24.4 % (37.0-47.0); Immature Granulocyte Absolute 0.16 K/mm3 (0.00-0.031); Immature Granulocyte Percent A 0.7 % (0-0.5); Lymphocytes Absolute Auto 1.81 K/mm3 (0.9-3.2); Lymphocytes Percent Auto 8.1 % (18.3-44.2); Mean Corpuscular HGB Conc 32.8 g/dl (32-36); Mean Corpuscular Hemoglobin 30.9 pg (26-34); Mean Corpuscular Volume 94.2 fl (80-100); Mean Platelet Volume 9.4 fl (7.4-10.4); Monocytes Absolute Auto 1.5 K/mm3 (0.1-0.6); Monocytes Percent Auto 6.6 % (2.6-8.5); Neutrophils Absolute Auto 18.8 K/mm3 (1.3-6.7); Neutrophils Percent Auto 84.4 % (45.5-73.1); Platelet Count Result 268 k/mm3 (150-375); Red Blood Count 2.59 M/mm3 (4.2-5.4); Red Cell Distribution Width 14.5 % (11.5-14.5); White Blood Count 22.3 K/mm3 (4.5-10.0)
[2021-06-22 08:10] VITALS: BP 133/77; PULSE 84; RESP 20; TEMP 36.6; O2SAT 100
[2021-06-22 09:12] VITALS: PULSE 84
[2021-06-22] MEDS: DOCUSATE SODIUM 100 MG CAPSULE PO ×2 (09:12→18:10)
[2021-06-22] MEDS: LABETALOL HCL 100 MG TABLET 300 MG PO (09:12)
[2021-06-22] MEDS: POLYSACCHARIDE IRON COMPLEX 150 MG CAPSULE PO ×2 (09:12→18:10)
[2021-06-22] MEDS: MULTIVIT/MIN/PREN/FOL AC/IRON TABLET 1 TAB PO (09:12)
[2021-06-22] MEDS: metFORMIN HCL XR 500 MG TAB.SR.24H PO ×2 (09:13→20:05)
--- NOTE | 2021-06-22 10:03 | WPDANLDPN2 ---
Anes-Prog Note L&D Date/Time: 06/22/21 10:03 Comfortable throughout: labor, delivery and section Neuraxial method: epidural Epidural/Spinal procedure site: clean & non-tender Neuro status: Neuro function grossly intact. Cardiovascular status: normal Respiratory status: normal Airway patency: baseline Mental status: baseline Post-Op hydration status: normal Vital Signs: Last Vital Signs Temp 36.6 C 06/22/21 08:10 Pulse 84 06/22/21 09:12 Resp 20 06/22/21 08:10 BP 133/77 06/22/21 08:10 Pulse Ox 100 06/22/21 08:10 Pain score (VAS): 0 I/O: Intake & Output 06/21/21 06/22/21 06/22/21 23:59 07:59 15:59 Intake Total 1000 1300 Output Total 1401 1400 Balance -401 -100 Post-procedural complaints: none Patient feedback: Patient satisfied with anesthetic care.
--- NOTE | 2021-06-22 10:04 | WPDANLDNPN2 ---
Anes-Prog Note L&D-Neuraxial Date/Time: 06/22/21 10:04 Neuraxial medications: epidural PF morphine Opiod-related complaints: none Patient feedback: Patient satisfied with post-operative pain management.
[2021-06-22 11:39] VITALS: BP 97/51; PULSE 88; RESP 18; TEMP 36.6; O2SAT 98
--- NOTE | 2021-06-22 12:41 | P.PNOB_ITS ---
OB - PN: Subj Subjective Date/time seen: 06/22/21 12:41 Narrative: Pain OK. Tolerating diet. Baby [facility] to [facility]. OB - PN: Obj Data Labs CBC & Chem 7: 06/22/21 04:10 06/19/21 17:46 Labs: Laboratory Results - last 24 hr 06/22/21 04:10 WBC 22.3 H RBC 2.59 L Hgb 8.0 L Hct 24.4 L MCV 94.2 MCH 30.9 MCHC 32.8 RDW 14.5 Plt Count 268 MPV 9.4 Immature Gran % (Auto) 0.7 H Neut % (Auto) 84.4 H Lymph % (Auto) 8.1 L Darke % (Auto) 6.6 Eos % (Auto) 0.0 Baso % (Auto) 0.2 Lymph # (Auto) 1.81 Darke # (Auto) 1.5 H Eos # (Auto) 0.0 Baso # (Auto) 0.1 Abs Immat Gran (auto) 0.16 H Absolute Neuts (auto) 18.8 H Absolute Nucleated RBC 0.0 Nucleated RBC % 0.0 OB - PN A/P Plan Comments: A: POD#1, doing well. P: Routine care. Exam Narrative: AVSS I/O OK ABD soft, nontender, fundus firm. Incision c/d/i. EXT nontender
[2021-06-22] MEDS: HYDROcodone/acetaminophen (*CRX) 10-325 MG TABLET 1 TAB PO ×3 (12:56→21:17)
--- NOTE | 2021-06-22 13:58 | PC.NURSE ---
Patient left on a 4 hour pass to see baby at [facility].
[2021-06-22] MEDS: SIMETHICONE 80 MG TAB.CHEW PO (18:10)
[2021-06-22 20:00] VITALS: BP 131/49; PULSE 102; RESP 16; TEMP 37.2; O2SAT 100
[2021-06-22 20:05] VITALS: PULSE 102
[2021-06-22] MEDS: LABETALOL HCL 100 MG TABLET PO (20:05)
[2021-06-22] MEDS: FLUoxetine HCL 20 MG CAPSULE PO (20:05)
[2021-06-23] MEDS: SIMETHICONE 80 MG TAB.CHEW PO ×2 (03:50→18:46)
[2021-06-23] MEDS: IBUPROFEN 600 MG TABLET PO ×3 (03:50→18:46)
[2021-06-23] MEDS: HYDROcodone/acetaminophen (*CRX) 10-325 MG TABLET 1 TAB PO ×6 (03:51→22:07)
[2021-06-23 07:40] VITALS: BP 105/61; PULSE 88; RESP 20; TEMP 36.3; O2SAT 100
[2021-06-23] MEDS: MULTIVIT/MIN/PREN/FOL AC/IRON TABLET 1 TAB PO (08:45)
[2021-06-23] MEDS: metFORMIN HCL XR 500 MG TAB.SR.24H PO ×2 (08:45→21:02)
[2021-06-23] MEDS: POLYSACCHARIDE IRON COMPLEX 150 MG CAPSULE PO ×2 (08:45→18:46)
[2021-06-23] MEDS: DOCUSATE SODIUM 100 MG CAPSULE PO ×2 (08:45→21:02)
[2021-06-23] MEDS: LABETALOL HCL 100 MG TABLET PO ×2 (08:46→21:02)
[2021-06-23] MEDS: BISACODYL 10 MG SUPPOSITORY RECTAL (17:01)
[2021-06-23 21:00] VITALS: BP 106/71; PULSE 88; RESP 16; TEMP 36.9; O2SAT 100
[2021-06-23 21:02] VITALS: PULSE 88
[2021-06-23] MEDS: FLUoxetine HCL 20 MG CAPSULE PO (21:02)
--- NOTE | 2021-06-23 21:33 | PC.NURSE ---
Pt passed a small clot approx 2 in x 1 in which was noted on ramandeep pad. Pt assured this was normal. To notify RN for larger clots or frequent clots. Verbalized understanding.
[2021-06-24] MEDS: HYDROcodone/acetaminophen (*CRX) 10-325 MG TABLET 1 TAB PO ×3 (01:46→10:14)
[2021-06-24] MEDS: IBUPROFEN 600 MG TABLET PO ×2 (01:47→10:15)
[2021-06-24 10:00] VITALS: BP 146/83; PULSE 86; RESP 16; TEMP 36.7; O2SAT 100
[2021-06-24] MEDS: MULTIVIT/MIN/PREN/FOL AC/IRON TABLET 1 TAB PO (10:05)
[2021-06-24 10:06] VITALS: PULSE 80
[2021-06-24] MEDS: DOCUSATE SODIUM 100 MG CAPSULE PO (10:06)
[2021-06-24] MEDS: LABETALOL HCL 100 MG TABLET PO (10:06)
[2021-06-24] MEDS: POLYSACCHARIDE IRON COMPLEX 150 MG CAPSULE PO (10:06)
[2021-06-24] MEDS: SIMETHICONE 80 MG TAB.CHEW PO (10:14)
[2021-06-26 07:59] VITALS: BP 170/85; PULSE 55; RESP 16; TEMP 37.3; O2SAT 100
== END 2021-06-24 11:45 | disposition home or self-care (01) | DRG 786 ==
LOC: ANHLDR 06-21 17:30 → ANHOB2 06-24 10:23 → ANHLDR 06-26 11:37 → ANHOB2 06-26 11:37
PROVIDERS: Admitting Provider Obstetrics & Gynecology; Visit Provider Student in an Organized Health Care Education/Training Program
PROC: 10D00Z1 Extraction of Products of Conception, Low, Open Approach (ICD-10-PCS; CPT 59514; principal; 2021-06-21 15:30)
DX: O16.4 Unspecified maternal hypertension, complicating childbirth (principal); O41.1230 Chorioamnionitis, third trimester, not applicable or unspecified; Z37.0 Single live birth; Z3A.37 37 weeks gestation of pregnancy; O62.0 Primary inadequate contractions; O99.344 Other mental disorders complicating childbirth; F41.9 Anxiety disorder, unspecified; O99.214 Obesity complicating childbirth; E66.01 Morbid (severe) obesity due to excess calories
CPT/HCPCS: 36415; 80053; 84550; 85025; 86592; 86850; 86900; 86901; 87086; 87147; 87181; 87186; 88307; A9270; J0131; J0290; J0690; J2270; J2274; J2405; J2590; J2795; J7120

== ENCOUNTER 2021-06-27 17:25 | Observation (INO) | payer OTHER, SELFPAY ==
[2021-06-27] VITALS (17 sets, daily range): BP systolic 155–188; BP diastolic 74–102; PULSE 44–68; RESP 16–35; TEMP 35.8–37; O2SAT 92–100; BMI 51.2
--- NOTE | ~2021-06-27 | CT_ITS ---
EXAMINATION: CTA chest PE abdomen pel DATE: 06/27/2021 19:06 INDICATION: Chest pain, shortness of breath. Back pain. Nausea. section 6 days ago. Foot and leg swelling since surgery. TECHNIQUE: Computed tomography angiography (CTA) of the chest was performed with 100 mL Omnipaque-350 intravenous contrast timed to evaluate the pulmonary arteries. Coronal maximum intensity projection 3D-reconstructions were created by the technologist. Automated exposure control and iterative reconst ruction technique were employed. Exam dose: 2662.59 mGy-cm total exam DLP. COMPARISON: None. FINDINGS: Bilateral mild to moderate pleural effusions, right greater than left. Cardiomegaly. No pericardial effusion. Hazy bilateral pulmonary infiltrates predominate centrally and in the lower lung zones, likely due to pulmonary edema. Pneumonia is not excluded. There is dependent right basilar lower lobe atelectasis. There are calcified left hilar nodes consistent with old granulomatous disease. There is diagnostic contrast enhancement of the pulmonary arteries and no apparent pulmonary embolism . Normal morphology of the adrenal glands. Mild depression of the superior vertebral endplate, mild loss of height of this vertebral body. No suspicious osteolytic or osteoblastic lesions are noted. IMPRESSION: Cardiomegaly, mild to moderate pleural effusions, bilateral pulmonary infiltrates sugges ting pulmonary edema. Findings suggest congestive heart failure No evidence of pulmonary embolism Reviewed, dictated and finalized at [facility]. Reviewed, dictated and finalized at [facility]. IMPRESSION: Cardiomegaly, mild to moderate pleural effusions, bilateral pulmon elena infiltrates suggesting pulmonary edema. Findings suggest congestive heart f ailure No evidence of pulmonary embolism
--- NOTE | 2021-06-27 17:30 | ED.SOB ---
HPI - SOB/Dyspnea General Chief Complaint: Shortness of Breath/Dyspnea <Rupa Rinaldi PA-C - Last Filed: 06/28/21 02:53> Stated Complaint: Shortness of Breath <Rupa Rinaldi PA-C - Last Filed: 06/28/21 02:53> Time Seen by Provider: 06/27/21 17:29 <Rupa Rinaldi PA-C - Last Filed: 06/28/21 02:53> Source: patient <BARBARA Arana Last Filed: 06/28/21 02:53> Mode of arrival: ambulatory <BARBARA Arana Last Filed: 06/28/21 02:53> Limitations: no limitations <Rupa Rinaldi PA-C - Last Filed: 06/28/21 02:53> History of Present Illness HPI Narrative: Patient is a 35-year-old female who presents to the ED with report of shortness of breath and chest pain. Patient reports she had a last Saturday done by Dr. Ceballos. She reports a difficult recovery since surgery and states she has been immobile for the most part at home. She has had lower abdominal pain around her incision and then developed nausea and vomiting on Saturday, 2 days ago. She reports she has been dry heaving frequently. [facility]ER did prescribe Zofran, which has helped some. She developed midsternal chest pain today, radiating through to her back, described as a sharp pain. She states the pain is worse with deep inspiration and laying flat. She also reports having shortness of breath with exertion and BLE edema, but no calf pain. She called her [facility] AR[employer]ANGER about her symptoms and was referred to the ED for further evaluation. Patient denies any cough, hemoptysis, fever, chills, hemoptysis, hematemesis, diarrhea, constipation, dysuria, hematuria, urinary frequency. <Rupa Rinaldi PA-C - Last Filed: 06/28/21 02:53> Related Data Home Medications: Home Medications Medication Instructions Recorded Confirmed fluoxetine 20 mg PO HS 05/25/21 06/28/21 PNV cmb#95-ferrous fumarate-FA 1 tablet PO DAILY 05/31/21 06/27/21 [] <Rupa Rinaldi PA-C - Last Filed: 06/28/21 02:53> Allergies/Adverse Reactions: Allergies Allergy/AdvReac Type Severity Reaction Status Date / Time No Known Allergies Allergy Verified 06/19/21 18:48 <Rupa Rinaldi PA-C - Last Filed: 06/28/21 02:53> Review of Systems Review of Systems: CONSTITUTIONAL: Denies fever, chills, or sweats. CARDIOVASCULAR: Reports midsternal chest pain radiating through to back and BLE edema. Denies palpitations. RESPIRATORY: Reports dyspnea on exertion. Denies cough or hemoptysis. GASTROINTESTINAL: Reports lower abdominal pain around incision, nausea, vomiting. Denies diarrhea constipation. GENITOURINARY: Denies dysuria, urinary frequency, hematuria. MUSCULOSKELETAL: Denies joint pain, or myalgia, BLE pain. NEUROLOGIC: Denies headache, numbness, or weakness. <Rupa Rinaldi PA-C - Last Filed: 06/28/21 02:53> All systems reviewed & are unremarkable except as noted in HPI and below <Rupa Rinaldi PA-C - Last Filed: 06/28/21 02:53> [facility] Past Medical History Medical History: Medical History Anxiety Gestational HTN Migraines Morbid obesity PCOS (polycystic ovarian syndrome) and not yet delivered <Rupa Rinaldi PA-C - Last Filed: 06/28/21 02:53> Surgical History Surgical History: Surgical History History of <Rupa Rinaldi PA-C - Last Filed: 06/28/21 02:53> Family History Family History: Family History Grandparent Heart disease Cerebrovascular accident Mother Hypertension Father Hypertension Sibling Sudden infant syndrome (SIDS) Sibling Overdose Grandparent Colon cancer Grandparent Malignant brain tumor <BARBARA Arana Last Filed: 06/28/21 02:53> Social History Social History: Social History Smoking status:
--- NOTE | 2021-06-27 18:05 | ECG_ITS ---
Measurements Intervals [place] Rate: 56 P: 33 MT: 137 QRS: 43 QRSD: 80 T: 35 QT: 419 QTc: 408 Interpretive Statements SINUS BRADYCARDIA NO PREVIOUS ECG AVAILABLE FOR COMPARISON Electronically Signed On 06-27-2021 18:40:56 CDT by Viki Mccullough M.D.
[2021-06-27] MEDS: SODIUM CHLORIDE 0.9% IV 1,000 ML 999 ML IV CONT (18:13)
[2021-06-27 18:18] LABS: Basophils Absolute Auto 0.1 K/mm3 (0.0-0.1); Basophils Percent Auto 0.6 % (0.2-1.2); Eosinophils Absolute Auto 0.1 K/mm3 (0-0.3); Eosinophils Percent Auto 0.6 % (0-4.4); Hematocrit 25.5 % (37.0-47.0); Hemoglobin 8.2 g/dL (12.0-15.0); Immature Granulocyte Absolute 0.66 K/mm3 (0.00-0.031); Immature Granulocyte Percent A 4.2 % (0-0.5); Lymphocytes Absolute Auto 2.73 K/mm3 (0.9-3.2); Lymphocytes Percent Auto 17.6 % (18.3-44.2); Mean Corpuscular HGB Conc 32.2 g/dl (32-36); Mean Corpuscular Hemoglobin 30.9 pg (26-34); Mean Corpuscular Volume 96.2 fl (80-100); Mean Platelet Volume 9.1 fl (7.4-10.4); Monocytes Absolute Auto 1.3 K/mm3 (0.1-0.6); Monocytes Percent Auto 8.4 % (2.6-8.5); Neutrophils Absolute Auto 10.7 K/mm3 (1.3-6.7); Neutrophils Percent Auto 68.6 % (45.5-73.1); Nucleated Red Blood Cells Absolute Auto 0.1 K/mm3 (0.0-0.012); Nucleated Red Blood Cells Perc 0.8 % (0.0-0.2); Platelet Count Result 571 k/mm3 (150-375); Red Blood Count 2.65 M/mm3 (4.2-5.4); Red Cell Distribution Width 14.4 % (11.5-14.5); White Blood Count 15.5 K/mm3 (4.5-10.0)
[2021-06-27 18:36] LABS: Alanine Aminotransferase 63 U/L (4-35); Albumin Level 3.1 g/dL (3.5-5.1); Alkaline Phosphatase 148 U/L (38-126); Anion Gap 6 mmol/L (8-16); Aspartate Amino Transferase 85 U/L (14-36); Bilirubin,Total 0.2 mg/dL (0.2-1.3); Blood Urea Nitrogen 18 mg/dL (7-17); Calcium 8.3 mg/dL (8.4-10.2); Carbon Dioxide 23 mmol/L (22-30); Chloride 109 mmol/L (98-107); Estimated CRCL calculation 82 ml/min; Estimated Glomerular Filt Rate > 60; Glucose 90 mg/dL (65-110); Lipase 61 U/L (23-300); Sodium 138 mmol/L (137-145)
[2021-06-27 20:20] LABS: NT Pro B Type Natriuretic Pept 1550 pg/mL (5-100); Troponin I < 0.012 ng/mL (0.000-0.034)
[2021-06-27 20:30] LABS: Add Urine Microscopic? YES; Appearance Urine Clear (Clear); Bacteria Urine Trace /hpf; Bilirubin Urine Negative (Negative); Blood Urine 3+ (Negative); Color Urine Yellow (Yellow); Glucose Urine UA Negative (Negative); Ketones Urine Negative (Negative); Leukocyte Esterase Ur 2+ LEU/UL (Negative); Mucus Urine Rare /lpf; Nitrate Urine Negative (Negative); Protein Urine 1+ mg/dL (Negative); RBC Urine >75 /hpf (0-2); Squamous Epithelial Cell Urine Many /hpf (Few); Urobilinogen Urine Negative mg/dL (<2.0); WBC Urine 31-50 /hpf
[2021-06-27 20:31] LABS: Specific Grav Ur > 1.060 (1.001-1.035)
--- NOTE | 2021-06-27 23:15 | ADMGEN ---
This patient, Carola Samuels, was admitted to Medical Room 342-01. Patient/family oriented to hospital policies and general routines including ID bracelet, bed and alarms, visiting hours, pain management, procedures, bathroom and other care routines, personal items, smoking policy, room service/diet, and visiting hours. Information on how to activate the Rapid Response Team has been discussed. Patient/Family are encouraged to report perceived risks to care and to ask questions if they do not understand what they are told or what they should do.
[2021-06-28] VITALS (10 sets, daily range): BP systolic 144–163; BP diastolic 60–88; PULSE 43–72; RESP 16–20; TEMP 36–36.9; O2SAT 95–100
--- NOTE | 2021-06-28 | ECHO_ITS ---
Patient Info Name: Carola Samuels Age: 35 years : 1985 Gender: Female Ht: 69 in Wt: 347 lbs BSA: 2.86 m2 HR: 50 bpm BP: 144 / 60 mmHg Heart Rhythm: Sinus Rhythm Technical Quality: Fair Exam Date: 06/28/2021 8:23 AM Exam Location: [facility] Patient Status: Outpatient Admit Date: 06/27/2021 Staff Ordering Physician: Donaldo Reyes MD Selling Specialist: Negrita Marvin RDCS Attending Provider: Donaldo Reyes MD Referring Physician: Amy LAGUNA; Exam Type: CA echo dop color flow w con Study Info Indications - heart failure Complete two-dimensional, color flow and Doppler transthoracic echocardiogram is performed with contrast to opacify the left ventricle and to improve the deliniation of the left ventricle endocardial borders. Contrast/Agitated Saline Contrast/Ag. Saline: Definity Amount: 2.00 ml Administered By: Negrita Marvin RDCS Existing IV Access: Yes IV Access Condition: patent with no signs of infiltration Summary 1. Normal left ventricular size and thickness with good contractility of all segments. Calculated ejection fraction 74%, visual estimate 65-70%. Normal diastolic function. 2. Left atrial chamber dimension is mildly enlarged. 3. Mild to moderate pulmonary hypertension, estimated pulmonary arterial systolic pressure is 47 mmHg. 4. There is mild mitral valve regurgitation. 5. Normal sinus rhythm. Left Ventricle Left ventricular chamber dimension is normal. Left ventricular systolic function is normal, estimated at 65-70%. There is no increased left ventricular wall thickness. Left ventricular septal wall motion is normal. The left ventricular diastolic function is normal. Right Ventricle Right ventricular chamber dimension is normal. Right ventricular systolic function is normal. Left Atria Left atrial chamber dimension is mildly enlarged. Right Atria Right atrial chamber dimension is normal. Aortic Valve The aortic valve is trileaflet. There is no aortic valve sclerosis. There is no aortic valve stenosis. There is no aortic valve regurgitation. Pulmonic Valve The pulmonic valve is normal. There is no pulmonic valve stenosis. There is trace pulmonic regurgitation. Mitral Valve The mitral valve has thickened leaflets. There is no mitral valve stenosis. There is mild mitral valve regurgitation. Tricuspid Valve The tricuspid valve leaflets are normal. There is no significant tricuspid valve stenosis. There is trace tricuspid valve regurgitation. Mild to moderate pulmonary hypertension, estimated pulmonary arterial systolic pressure is 47 mmHg. Pericardium/Pleural The pericardium appears normal. There is no pericardial effusion. Inferior Vena Cava Normal inferior vena cava with >50% collapse upon inspiration consistent with Empty right atrial pressure, 10 mmHg. Aorta The aortic root size at the sinus of Valsalva is normal. The prox ascending aorta size is normal. Left Ventricular Outflow Tract Name Value Normal LVOT 2D LVOT Diameter 2.04 cm LVOT Doppler
--- NOTE | 2021-06-28 07:56 | PM.IMHP ---
H&P: HPI History of Present Illness Date/Time: 06/28/21 07:56 35 yo who presents to the ED with complaints of SOB and fatigue. Pt is from primary on 06/21/21. Pt course was complicated by pain. She was having increased incision site pain likely due to class 3 obesity. Pt also was having increased nausea and emesis . She reports the emesis exacerbated her pain. Pt has not been able to tolerate much PO. She has not been ambulating secondary to pain. Pt was evaluated in the ER and has signes suggestive of heart failure. Pt has struggled with hypertension for many years and was taking Labetalol. She denies any known history of heart disease. Chief Complaint: cardiomyopathy Review of Systems Review of Systems: All systems reviewed & are unremarkable except as noted in HPI and below PMFSH Past Medical History Medical History (Updated 06/28/21 @ 10:28 by Donaldo Reyes MD) Anxiety Gestational HTN Migraines Morbid obesity PCOS (polycystic ovarian syndrome) and not yet delivered Surgical History Surgical History (Updated 06/28/21 @ 02:44 by Rupa Rinaldi PA-C) History of Family History Family History Grandparent Heart disease Cerebrovascular accident Mother Hypertension Father Hypertension Sibling Sudden syndrome (SIDS) Sibling Overdose Grandparent Colon cancer Grandparent Malignant brain tumor Social History Social History Smoking status: Never smoker Second hand tobacco smoke exposure: No Alcohol intake: never Substance use: never Spiritual care concerns: No Meds Home Medications and Allergies Home Medications Medication Instructions Recorded Confirmed Type fluoxetine 20 mg PO DAILY 05/25/21 06/27/21 History metformin 500 mg PO BID 05/25/21 06/27/21 History PNV cmb#95-ferrous fumarate-FA 1 tablet PO DAILY 05/31/21 06/27/21 History [] isiwisegul-cvzkiwryjsokw-vziw 1 - 2 cap PO Q6H PRN #30 cap 06/14/21 06/27/21 Rx [Fioricet] ibuprofen 600 mg PO Q6H PRN #30 tablet 06/21/21 06/27/21 Rx ferrous sulfate 325 mg PO DAILY #30 tablet 06/22/21 06/27/21 Rx hydrocodone-acetaminophen 1 tablet PO Q6H PRN #30 tablet 06/24/21 06/27/21 Rx labetalol 100 mg PO Q12HR #60 tablet 06/24/21 06/27/21 Rx Allergies Allergy/AdvReac Type Severity Reaction Status Date / Time No Known Allergies Allergy Verified 06/19/21 18:48 Vital Signs Vital Signs - 24 hr 06/27/21 17:29 06/27/21 17:37 06/27/21 17:40 Temperature Pulse Rate 63 63 Respiratory Rate 20 Blood Pressure 162/102 H Pulse Oximetry 98 98 06/27/21 17:50 06/27/21 18:00 06/27/21 18:35 Temperature Pulse Rate 50 L 44 L 50 L Respiratory Rate 35 H 33 H 28 H Blood Pressure Pulse Oximetry 99 98 98 06/27/21 18:45 06/27/21 19:07 06/27/21 19:19 Temperature Pulse Rate 49 L 51 L 49 L Respiratory Rate 21 H 20 26 H Blood Pressure Pulse Oximetry 98 97 97 06/27/21 19:33 06/27/21 19:45 06/27/21 20:00 Temperature Pulse Rate 53 L 68 59 L Respiratory Rate 29 H 34 H 28 H Blood Pressure Pulse Oximetry 98 92 98 06/27/21 20:02 06/27/21 21:00 06/27/21 21:18 Temperature Pulse Rate 48 L 57 L 53 L Respiratory Rate 24 H 16 23 H Blood Pressure 188/78 H Pulse Oximetry 100 99 99 06/27/21 22:31 06/27/21 23:32 06/28/21 00:00 Temperature 37.0 C 35.8 C L Pulse Rate 50 L 54 L 52 L Respiratory Rate 20 20 Blood Pressure 155/75 H 165/74 H Pulse Oximetry 98 100 06/28/21 00:01 06/28/21 03:59 06/28/21 04:00 Temperature 36.0 C L Pulse Rate 52 L 52 L 43 L Respiratory Rate 20 Blood Pressure 144/60 H Pulse Oximetry 95 Exam Const: General: cooperative, comfortable and no acute distress Nutritional Appearance: obese Limitations: no limitations Resp: Effort & Inspection: lance
[2021-06-28] MEDS: oxyCODONE/ACETAMINOPHEN (*CRX) 5-325 MG TABLET 2 TABLET PO ×3 (08:28→20:05)
[2021-06-28] MEDS: PERFLUTREN LIPID MICROSPHERES 1.5 ML VIAL DILUTED TO 10 ML TOTAL VOLUME IV PUSH (09:20)
--- NOTE | 2021-06-28 10:08 | IVDEFINITY ---
Prior to administration of IV Definity the patient was educated on the risks and benefits of the imaging enhancing agent including potential adverse side effects. The patient verbalized understanding. Allergies were verified. No exclusion criteria were identified and at least one of the following inclusion criteria were met: 1) physician request, 2) patient technically difficult to image (per the [place] [employer] Echocardi[employer] guidelines of two or more segments not discernable within the apical view), or 3) questionable left ventricular function. ?
[2021-06-28] MEDS: metFORMIN HCL XR 500 MG TAB.SR.24H PO ×2 (10:31→17:44)
[2021-06-28] MEDS: FERROUS SULFATE 324 MG TABLET PO (10:31)
[2021-06-28] MEDS: FUROSEMIDE 20 MG TABLET PO (12:43)
[2021-06-28] MEDS: PHARMACIST COMMUNICATION ORDER 1 EACH XX (15:18)
--- NOTE | 2021-06-28 16:36 | PM.CNCAR ---
Assessment and Plan Assessment and plan (1) Acute diastolic heart failure: Code(s): I50.31 - Acute diastolic (congestive) heart failure Status: Acute Assessment and Plan: Carola unfortunately presents with congestive heart failure. However this does not appear to be a cardiomyopathy but heart failure with preserved ejection fraction. This is often caused by hypertension and obesity. Treatment of diastolic heart failure is aimed at controlling risk factors (HTN) and lifestyle changes. Change Lasix to 20 mg IV push b.i.d. Continue to work on optimal blood pressure control There is some evidence as spironolactone and Farxiga and/or Jardiance are helpful with diastolic heart failure. We can start those now (not planning on breast feeding). It is unclear if it will need to be a long-term medication as it is unknown if diastolic CHF will be a fci problem. However, since she has had CHF once it does suggest that she has compromised myocardial function and is at risk of recurrence. Discussed low-salt diet, lifestyle changes, weight loss, exercise etc. for long-term care of this type of heart failure. Other causes of diastolic heart failure (restrictive cardiomyopathy such as hemochromatosis, sarcoidosis, amyloidosis ) are unlikely in this situation. However I will send off an iron level. Hopefully can be discharged tomorrow with outpatient follow-up and on diuretic/BP therapy. (2) Chronic hypertension: Code(s): I10 - Essential (primary) hypertension Status: Acute Assessment and Plan: Carola has had hypertension since she was in her 20s. Not well controlled at the present time: it has been fluctuating a lot since she delivered. (3) History of : Code(s): Z98.891 - History of uterine scar from previous surgery Status: Acute Assessment and Plan: Status post on Saturday the (4) Class 3 obesity: Code(s): E66.9 - Obesity, unspecified Status: Acute (5) Pulmonary hypertension: Code(s): I27.20 - Pulmonary hypertension, unspecified Status: Acute Assessment and Plan: Echo shows pulmonary hypertension which can be from diastolic dysfunction but also sleep apnea. Will repeat an echo in the future when she reaches hemeostasis and if it persists we will order sleep studies. 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 Ms. Samuels is followed by Dr. Caro, and had a last Saturday, giving to a baby girl after a long labor. after going home she was having a lot of lower abdominal incisional pain. She also had nausea, vomiting and Vigorous dry heaves. After that she was having problems with some chest and upper back discomfort, worse with inspiration. She became short of breath the day prior to admission. She had some edema during her and especially after delivery. CT of the chest showed pleural effusions, cardiomegaly and pulmonary infiltrates c.w CHF but no pulmonary embolus. She was admitted and started on p.o. Lasix. She Is not requiring oxygen. Echo showed normal left ventricular systolic function, tlow-yf-kfzhvhva pulmonary hypertension, left atrial enlargement. Troponin was negative x1. ProBNP was 1550. Carola has had hypertension for several years, taking labetalol, with no history of heart disease. Her blood pressure has been controlled until her , then became more difficult to control. Toward the end of her she was taking labetalol 300 mg b.i.d. and Procardia 30 mg qd. She has PCOS and morbid obesity with a BMI of 51, but no history of hyperlipidemia or diabetes.
[2021-06-28] MEDS: LABETALOL HCL 100 MG TABLET 200 MG PO (20:04)
[2021-06-28] MEDS: FLUoxetine HCL 20 MG CAPSULE PO (20:05)
[2021-06-29] VITALS: PULSE 67
[2021-06-29 00:33] VITALS: BP 132/52; PULSE 88; RESP 14; TEMP 36.6; O2SAT 96
[2021-06-29] MEDS: oxyCODONE/ACETAMINOPHEN (*CRX) 5-325 MG TABLET 2 TABLET PO ×2 (01:53→09:04)
[2021-06-29 04:00] VITALS: PULSE 64
[2021-06-29 06:02] VITALS: BP 152/88; PULSE 69; RESP 16; TEMP 36.3; O2SAT 98
[2021-06-29] MEDS: IBUPROFEN 600 MG TABLET PO (06:08)
[2021-06-29 06:30] LABS: NT Pro B Type Natriuretic Pept 1170 pg/mL (5-100)
[2021-06-29 06:51] LABS: Iron 26 ug/dL (37-170)
[2021-06-29 07:01] LABS: Percent Iron Saturation 8 % (20-50)
--- NOTE | 2021-06-29 07:35 | PM.GYNPNOP ---
[employer] PRECINCT - A/P Assessment and plan (1) Pulmonary hypertension: Code(s): I27.20 - Pulmonary hypertension, unspecified Status: Acute Assessment and Plan: Pulmonary hypertension noted on echocardiogram SpO2 98% on RA pt started on spironolactone and lasix appreciate cardiology recommendations (2) Acute diastolic heart failure: Code(s): I50.31 - Acute diastolic (congestive) heart failure Status: Acute Assessment and Plan: Echo suggestive of acute CHF class 3 obesity, CHTN, and recent as risk factors pt started on spironolactone and empagliflozin Pt continues to have labile BP, will continue to monitor Will discharge patient when cardiology feels appropriate Appreciate cardiology recommendations (3) cardiomyopathy: Code(s): 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 Status: Acute (4) Class 3 obesity: Code(s): E66.9 - Obesity, unspecified Status: Acute (5) Chronic hypertension: Code(s): I10 - Essential (primary) hypertension Status: Acute (6) History of : Code(s): Z98.891 - History of uterine scar from previous surgery Status: Acute Assessment and Plan: Pt doing well from a post operative stand point pain is adequately controlled pt denies any further nausea incision intact and healing appropriately recommended continued use of abdominal binder when ambulating Time Spent With Patient Time: Total time spent is greater than 50% in coordination of care (as documented) at patient's floor/unit and/or counseling patient: Time with patient: less than 15 minutes [employer] PRECINCT- PN:[facility] Post-Op Subjective Date/time seen: 06/29/21 07:35 Interval history: 35 yo who presents with cardiomyopathy after primary on 06/21/21. Pt was seen by cardiology yesterday. Echocardiogram confirmed signs of CHF with pulmonary hypertension. Pt received lasix yesterday and reports marked improvement in symptoms. She reports adequate pain control. Her nausea is controlled. Pt has been ambulating in the room and sitting up in the chair. Pt has no complaints this AM. Subjective: patient reports feeling better, patient has no complaints and patient is tolerating oral intake Review of Systems Review of Systems: All systems reviewed & are unremarkable except as noted in HPI and below Exam Const: General: cooperative, comfortable and no acute distress Resp: Effort & Inspection: normal respiratory effort and able to speak in complete sentences Cardio: Rate: regular rate GI: Inspection: incision (pfannenstiel incision healing appropriately ) and obesity GI Palp: Yes abdominal tenderness (mild tenderness to deep palpation ) Skin: General skin exam: normal color [employer] PRECINCT - PN: Obj Data Vital Signs Vital Signs: Vital Signs - 24 hr 06/28/21 08:20 06/28/21 10:28 06/28/21 12:00 Temperature 36.7 C Pulse Rate 50 L 43 L 47 L Respiratory Rate 18 Blood Pressure 163/77 H Pulse Oximetry 97 06/28/21 16:00 06/28/21 20:00 06/28/21 20:04 Temperature 36.9 C 36.3 C L Pulse Rate 72 58 L 58 L Respiratory Rate 18 16 Blood Pressure 151/88 H 151/87 H Pulse Oximetry 99 100 06/29/21 00:00 06/29/21 00:33 06/29/21 04:00 Temperature 36.6 C Pulse Rate 67 88 64 Respiratory Rate 14 Blood Pressure 132/52 L Pulse Oximetry 96 06/29/21 06:02 Temperature 36.3 C L Pulse Rate 69 Respiratory Rate 16 Blood Pressure 152/88 H Pulse Oximetry 98 Intake/Output Intake/Output: Intake & Output 06/26/21 06/27/21 06/28/21 06/29/21 23:59 23:59 23:59 23:59 Intake Total 150 1720 550 Output Total 200 Balance 150 1520 550 Meds/Results Medications: Active Medications Generic Name Dose Route Start Last Admin Trade Name Freq PRN Reason Stop Dose Admin Empagliflozin 10 mg 06/29/21 09:00 Empagliflozin 10 Mg Tablet PO DAILY KOJO Ferrous Sulfate 324 mg 06/28/21 09:00 06/28/21 10:31 Ferrous Sulf
[2021-06-29 08:00] VITALS: PULSE 69
[2021-06-29] MEDS: SPIRONOLACTONE 25 MG TABLET PO (09:04)
[2021-06-29] MEDS: LABETALOL HCL 100 MG TABLET 200 MG PO (09:04)
[2021-06-29] MEDS: FERROUS SULFATE 324 MG TABLET PO (09:04)
[2021-06-29] MEDS: FUROSEMIDE INJ 40 MG/4 ML VIAL 20 MG IV PUSH (09:05)
[2021-06-29] MEDS: metFORMIN HCL XR 500 MG TAB.SR.24H PO (09:05)
--- NOTE | 2021-06-29 09:06 | PM.PNCARD ---
Progress Note: A&P Assessment and Plan (1) Acute diastolic heart failure: Code(s): I50.31 - Acute diastolic (congestive) heart failure Status: Acute Assessment and Plan: Carola unfortunately presents with congestive heart failure. However this does not appear to be a cardiomyopathy but heart failure with preserved ejection fraction. This is often caused by hypertension and obesity. Treatment of diastolic heart failure is aimed at controlling risk factors (HTN) and lifestyle changes. Continue to work on optimal blood pressure control - can titrate antihypertensives as outpatient Continue spironolactone Continue Jardiance Lasix 20mg p.o. 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 However, since she has had CHF once it does suggest that she has compromised myocardial function and is at risk of recurrence. CHF counseling OK for discharge today from a cardiac perspective. (2) Chronic hypertension: Code(s): I10 - Essential (primary) hypertension Status: Acute Assessment and Plan: Carola has had hypertension since she was in her 20s. Not well controlled at the present time: it has been fluctuating a lot since she delivered. (3) History of : Code(s): Z98.891 - History of uterine scar from previous surgery Status: Acute Assessment and Plan: Status post on Saturday the (4) Class 3 obesity: Code(s): E66.9 - Obesity, unspecified Status: Acute (5) Pulmonary hypertension: Code(s): I27.20 - Pulmonary hypertension, unspecified Status: Acute Assessment and Plan: Echo shows pulmonary hypertension which can be from diastolic dysfunction but also sleep apnea. Will repeat an echo in the future when she reaches hemeostasis and if it persists we will order sleep studies. Subjective Date/time seen: 06/29/21 09:06 Cardiology follow up for CHF She's feeling much better today. No shortness of breath. Her swelling has resolved. Re-educated her about sodium restriction, fluid intake, HF medications, lifestyle changes. Review of Systems Constitutional: Constitutional: Reports no additional constitutional complaints Eyes: Eyes: Reports no additional eye complaints ENT: Reports system reviewed and no additional complaints, except as documented Cardiovascular: Cardiovascular: Reports chest pain, Reports pedal edema, Reports leg edema, Denies lightheadedness, Denies palpitations, Reports dyspnea and Reports dyspnea on exertion Respiratory: Respiratory: Denies chest congestion, Denies cough, Reports dyspnea and Reports dyspnea on exertion Gastrointestinal: Gastrointestinal: Reports abdominal pain and Reports nausea Genitourinary: Genitourinary: Denies hematuria Musculoskeletal: Musculoskeletal: Reports no additional musculoskeletal complaints Integumentary/Breasts: Skin/Breast: Denies rash Neurologic: Denies confusion Psychiatric: Psychiatric: Reports no additional psychiatric complaints and Denies confusion Endocrine: Endocrine: Denies palpitations Exam Narrative: Pleasant young woman sitting upright in bed Const: General: comfortable and no acute distress; No confusion Orientation/consciousness: No confusion HENMT: General nose exam: no epistaxis Eyes: EOM: EOMs intact bilaterally Neck: Neck: supple and no JVD Thyroid: thyroid normal Carotids: no bruits Lymphatic: lymphadenopathy not noted Resp: Effort & Inspection: normal respiratory effort Auscultation: clear to auscultation bilaterally Cardio: Rate: regular rate Rhythm: regular rhythm Heart sounds: no gallops, no murmurs and no rubs GI: Inspection: distended Other: obese abdomen Skin: General skin exam: normal color and no rashes or lesions noted Neuro: General: No confusion Cognition (Neuro): normal cognition Speech: normal
[2021-06-29] MEDS: EMPAGLIFLOZIN 10 MG TABLET PO (09:31)
[2021-06-29 10:02] LABS: Anion Gap 6 mmol/L (8-16); Blood Urea Nitrogen 18 mg/dL (7-17); Calcium 7.6 mg/dL (8.4-10.2); Carbon Dioxide 23 mmol/L (22-30); Chloride 109 mmol/L (98-107); Estimated CRCL calculation 141 ml/min; Estimated Glomerular Filt Rate > 60; Glucose 83 mg/dL (65-110); Potassium 3.5 mmol/L (3.4-5.0); Sodium 138 mmol/L (137-145)
--- NOTE | 2021-06-29 10:13 | PM.DS ---
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 Pt received a CT and ECHO with evidence of acute heart failure. Cardiology was consulted and patient had antihypertensives adjusted as well as starting Lasix. Pt reports improvements in symptoms. Pt stable for discharge. Status at Discharge Functional status at discharge: independent ambulation Overall status at discharge: patient is progressing back to baseline Time Spent with Patient Time attestation: Total time spent providing and/or coordinating discharge services: Time spent: Less than 30 minutes DS: Data Data Completed and Pending Labs on day of discharge: Labs from last 24 hours 06/29/21 06/29/21 06/29/21 05:25 05:25 05:17 Sodium 138 Potassium 3.5 Chloride 109 H Carbon Dioxide 23 Anion Gap 6 L BUN 18 H Creatinine 0.80 Estim Creat Clear Calc 141 Estimated GFR > 60 Glucose 83 Calcium 7.6 L Iron 26 L TIBC 334 % Saturation 8 L Ferritin 36.00 NT-Pro-B Natriuret Pep 1170 H Discharge Plan Discharge Consulting providers: Shakir Peterson ; ; Rupa Rinaldi Discharging Clinician: Donaldo Reyes Patient Disposition: Home, Self-Care Activity: as tolerated and pelvic rest Diet: low sodium and low fat Patient Instructions: Antibiotic Form Stand Alone Forms: General Discharge Information Follow-up/Referrals: Deirdre,Bhavna A., [employer]-[facility] [Advanced Practice Nurse] - (You have a follow up appointment on 07/26/21 at 2:00. Please arrive at 1:45.) Donaldo Reyes MD [Physician] - 1 Week Discharge Medications: New furosemide 20 mg Tablet 20 mg PO DAILY Qty: 30 RF: 0 Jardiance 10 mg Tablet 10 mg PO DAILY Qty: 30 RF: 1 spironolactone 25 mg Tablet 25 mg PO QAM Qty: 30 RF: 0 Continued PNV cmb#[id number] fumarate-FA [] 28 mg iron- 800 mcg Tablet 1 tablet PO DAILY RF: 0 [id number] [Fioricet] 50-300-40 mg capsule 1 - 2 cap PO Q6H PRN (Reason: pain) Qty: 30 RF: 0 fluoxetine 20 mg capsule 20 mg PO HS RF: 0 ibuprofen 600 mg tablet 600 mg PO Q6H PRN (Reason: cramps) Qty: 30 RF: 0 ferrous sulfate 325 mg (65 mg iron) tablet 325 mg PO DAILY Qty: 30 RF: 0 hydrocodone-acetaminophen 5-325 mg tablet 1 tablet PO Q6H PRN (Reason: pain) Qty: 30 RF: 0 Discontinued metformin 500 mg tablet extended release 24 hr 500 mg PO BID RF: 0 labetalol 100 mg Tablet 100 mg PO Q12HR Qty: 60 RF: 0 Date of admission: 06/27/21 21:16 Primary Care Provider: PHYSICIAN,SALES AND BUSINESS DEVELOPMENT MANAGER Admitting Provider: Donaldo Reyes Attending physician on admission: Donaldo Reyes Condition: Serious
== END 2021-06-29 11:43 | disposition home or self-care (01) ==
LOC: ANHED 18:16 → ANH3MED 22:07
PROVIDERS: Internal Medicine Cardiovascular Disease; Nurse Practitioner; Physician Assistant; Admitting Provider Student in an Organized Health Care Education/Training Program; Emergency Provider Emergency Medicine; Visit Provider Student in an Organized Health Care Education/Training Program
DX: O90.3 Peripartum cardiomyopathy (principal); O10.93 Unspecified pre-existing hypertension complicating the puerperium; I50.31 Acute diastolic (congestive) heart failure; O99.285 Endocrine, nutritional and metabolic diseases complicating the puerperium; E28.2 Polycystic ovarian syndrome; E66.01 Morbid (severe) obesity due to excess calories; G43.909 Migraine, unspecified, not intractable, without status migrainosus; F41.9 Anxiety disorder, unspecified; Z98.891 History of uterine scar from previous surgery; Z68.43 Body mass index [BMI] 50.0-59.9, adult; Z79.899 Other long term (current) drug therapy; Z79.84 Long term (current) use of oral hypoglycemic drugs
CPT/HCPCS: 36415; 71275; 74177; 80048; 80053; 81001; 82728; 83540; 83550; 83690; 83880; 84484; 85025; 87086; 87088; 93005; 96374; 99285; A9270; C8929; G0378; J1940; J7030; Q9957; Q9967